=== PATIENT | female | born 1985 | race Caucasian/White ===

== ENCOUNTER 2019-04-12 20:44 | Emergency (ER) | payer MEDICARE ==
[~2019-04-12] VITALS: Ht 162.6 cm; Wt 94.1 kg
[2019-04-12 20:49] VITALS: Ht 162.6 cm; Wt 94.1 kg
[2019-04-12] MEDS ORDERED: PHENERGAN25 MG RC (20:50)
[2019-04-12] MEDS ORDERED: PRENAVITE1 TAB PO (20:50)
[2019-04-12 21:12] LABS: BASOPHILS 0.1 % (0-2); EOSINOPHILS 1.3 % (0-7); HEMATOCRIT 38.5 % (36.0-48.0); HEMOGLOBIN 13.5 g/dL (12-16); IMMATURE GRANULOCYTES 0.3 % (0-5); LYMPHOCYTES 32.8 % (15-50); MCH 32.8 pg (26.0-34.0); MCHC 35.1 g/dL (31.0-37.0); MCV 93.4 fL (80.0-100.0); MEAN PLATELET VOLUME 10.6 fL (7.4-10.4); MONOCYTES 9.1 % (2-11); NEUTROPHILS 56.4 % (40-80); PLATELET COUNT 315 10x3/uL (130-400); RBC 4.12 10x6/uL (4.00-5.40); RDW 12.2 % (11.5-14.5); WBC 10.3 10x3/uL (4.8-10.8)
[2019-04-12 21:24] LABS: ALBUMIN 3.9 g/dL (3.4-5.0); ALKALINE PHOSPHATASE 69 U/L (46-116); ALT (SGPT) 32 U/L (10-68); BILIRUBIN - TOTAL 0.25 mg/dL (0.2-1.3); CALC OSMOLALITY 274 mosm/kg (275-300); CALCIUM 8.9 mg/dL (8.5-10.1); CARBON DIOXIDE 25.8 mmol/L (21.0-32.0); CHLORIDE - SERUM 102 mmol/L (98-107); CREATININE - SERUM 0.7 mg/dL (0.6-1.3); GLUCOSE 93 mg/dL (74-106); POTASSIUM - SERUM 3.8 mmol/L (3.5-5.1); PROTEIN - SERUM 7.4 g/dL (6.4-8.2); SODIUM 138 mmol/L (136-145); UREA NITROGEN 11 mg/dL (7-18); eGFR NON AFRICAN AMERICAN > 90 mL/min (90-120)
[2019-04-12 21:36] LABS: APPEARANCE HAZY (CLEAR); COLOR YELLOW (YELLOW); NITRITE NEGATIVE (NEGATIVE); PROTEIN TRACE mg/dL (NEGATIVE); SPECIFIC GRAVITY 1.015 (1.005-1.020)
[2019-04-12 21:37] LABS: BACTERIA FEW /hpf (NONE SEEN); BILIRUBIN NEGATIVE (NEGATIVE); GLUCOSE NEGATIVE (NEGATIVE); KETONE NEGATIVE (NEGATIVE); RED CELLS - URINE 0-5 /hpf (0-5); UROBILINOGEN NORMAL (NORMAL); WHITE CELLS - URINE 0-5 /hpf (0-5)
[2019-04-12 21:48] LABS: HCG - QUANTITATIVE (MATERNAL) 11769 mIU/mL
[2019-04-12] MEDS ORDERED: TYLENOL W/CODEI1 TAB PO (23:35)
[2019-04-12 23:45] VITALS: BP 126/73
== END 2019-04-12 23:45 | disposition home or self-care (01) ==
LOC: D.ER 20:44
PROVIDERS: Family Medicine
DX: O20.0 Threatened abortion (principal); Z3A.08 8 weeks gestation of pregnancy

== ENCOUNTER 2019-06-01 23:47 | Emergency (ER) | payer MEDICARE ==
[~2019-06-01] VITALS: Ht 162.6 cm; Wt 90.9 kg
[~2019-06-01 23:47] MED LIST: PHENERGAN25 MG RC; PRENAVITE1 TAB PO; TYLENOL W/CODEI1 TAB PO
[2019-06-01 23:53] VITALS: Ht 162.6 cm; Wt 90.9 kg
[2019-06-02] MEDS ORDERED: NAPROSYN500 MG PO (01:49)
[2019-06-02] MEDS ORDERED: CLEOCIN HCL300 MG PO (01:49)
[2019-06-02 02:10] VITALS: BP 130/82
== END 2019-06-02 02:10 | disposition home or self-care (01) ==
LOC: D.ER 23:47
DX: K08.89 Other specified disorders of teeth and supporting structures (principal); K02.9 Dental caries, unspecified

== ENCOUNTER 2019-08-04 21:32 | Emergency (ER) | payer MEDICARE ==
[~2019-08-04] VITALS: Ht 162.6 cm; Wt 90.5 kg
[~2019-08-04 21:32] MED LIST changes: +CLEOCIN HCL300 MG PO; +NAPROSYN500 MG PO
[2019-08-04 21:38] VITALS: Ht 162.6 cm; Wt 90.5 kg
[2019-08-04 22:41] LABS: HCG URINE NEGATIVE (NEGATIVE)
[2019-08-04 22:50] LABS: UDS - AMPHET NEGATIVE QUAL (NEGATIVE); UDS - BARB NEGATIVE QUAL (NEGATIVE); UDS - BENZO NEGATIVE QUAL (NEGATIVE); UDS - COCAINE NEGATIVE QUAL (NEGATIVE); UDS - OPIATE NEGATIVE QUAL (NEGATIVE); UDS - PCP NEGATIVE QUAL (NEGATIVE); UDS - THC NEGATIVE QUAL (NEGATIVE)
[2019-08-04 22:57] LABS: APPEARANCE HAZY (CLEAR); BACTERIA FEW /hpf (NONE SEEN); BILIRUBIN NEGATIVE (NEGATIVE); COLOR YELLOW (YELLOW); EPITHELIAL CELLS 0-5 /hpf (0-5); GLUCOSE NEGATIVE (NEGATIVE); KETONE NEGATIVE (NEGATIVE); NITRITE NEGATIVE (NEGATIVE); PROTEIN NEGATIVE (NEGATIVE); RED CELLS - URINE 0-5 /hpf (0-5); UROBILINOGEN NORMAL (NORMAL)
[2019-08-04] MEDS ORDERED: MACROBID100 MG PO (23:22)
[2019-08-04] MEDS ORDERED: CYCLOBENZAPRINE10 MG PO (23:22)
[2019-08-04 23:39] VITALS: BP 137/87
--- NOTE | 2019-08-11 19:20 | NUR ---
PATIENT CALLED AND INFORMED OF URINE CULTURE RESULTS. BACTRIM DS-1 TAB TWICE DAILY FOR 7 DAYS CALLED INTO [facility] PER DR GRIGSBY. PATIENT VOICED UNDERSTANDING TO STOP TAKING MACROBID AND START NEW ANTIBIOTIC.
== END 2019-08-04 23:41 | disposition home or self-care (01) ==
LOC: D.ER 21:32
PROVIDERS: Family Medicine
DX: S09.90XA Unspecified injury of head, initial encounter (principal); W18.30XA Fall on same level, unspecified, initial encounter; Y93.89 Activity, other specified; Y92.89 Other specified places as the place of occurrence of the external cause; S39.012A Strain of muscle, fascia and tendon of lower back, initial encounter; N39.0 Urinary tract infection, site not specified

== ENCOUNTER 2021-02-17 22:04 | Emergency (ER) | payer MEDICARE ==
[2019-08-04 21:38] VITALS: BMI 34.2
[~2021-02-17 22:04] MED LIST changes: +CYCLOBENZAPRINE10 MG PO; +MACROBID100 MG PO
[2021-02-17 22:47] LABS: BACTERIA MANY HPF (NONE SEEN); BILIRUBIN NEGATIVE (NEGATIVE); HCG URINE NEGATIVE (NEGATIVE); KETONE NEGATIVE (NEGATIVE); NITRITE POSITIVE (NEGATIVE); SQUAMOUS EPITHELIAL 0-5 HPF (0-4); UROBILINOGEN NORMAL mg/dL (< 2); WHITE CELLS - URINE 0-5 HPF (0-4)
[2021-02-17] MEDS ORDERED: ZANAFLEX4 MG PO (22:57)
[2021-02-17] MEDS ORDERED: MACROBID100 MG PO (22:57)
[2021-02-17] MEDS ORDERED: EC-NAPROSYN500 MG PO (22:57)
[2021-02-17 23:25] VITALS: BP 129/75
== END 2021-02-17 23:27 | disposition home or self-care (01) ==
LOC: D.ER 22:04
PROVIDERS: Family Medicine
DX: S39.012A Strain of muscle, fascia and tendon of lower back, initial encounter (principal); S16.1XXA Strain of muscle, fascia and tendon at neck level, initial encounter; S20.219A Contusion of unspecified front wall of thorax, initial encounter; N39.0 Urinary tract infection, site not specified; V89.2XXA Person injured in unspecified motor-vehicle accident, traffic, initial encounter; Y93.9 Activity, unspecified; Y92.9 Unspecified place or not applicable